=== PATIENT | male | born 1985 | race Two or more races ===

== ENCOUNTER 2017-02-01 01:58 | Emergency (ER) | payer MEDICARE, MEDICAID ==
[~2017-02-01] VITALS: Ht 175.3 cm; Wt 129.3 kg
[~2017-02-01 01:58] MED LIST: CALC667C PO; MULTTAB99 GT; NIFE60TA59 PO; SEVE800T PO
[2017-02-01 03:02] LABS: Basophils # (auto) 0 uL; Basophils % (auto) 0.3 % (0.0-2.0); Eosinophils # (auto) 0.1 uL; Eosinophils % (auto) 0.7 % (0.0-7.0); Hematocrit 45.9 % (41.0-53.0); Hemoglobin 15.1 g/dL (13.5-17.5); Lymphocytes # (auto) 1.8 uL; Lymphocytes % (auto) 16.4 % (10.0-50.0); Mean Corpuscular Hemoglobin 27.8 pg (28.0-32.0); Mean Corpuscular Hgb Conc. 32.8 g/dL (32.0-36.0); Mean Corpuscular Volume 84.8 fL (80.0-100.0); Mean Platelet Volume 7.5 fL (7.4-10.4); Monocytes # (auto) 0.9 uL; Monocytes % (auto) 8.3 % (0.0-12.0); Neutrophils # (auto) 8.3 uL; Neutrophils % (auto) 74.3 % (37.0-80.0); Platelet Count (auto) 264 10^3/uL (140-450); Red Cell Distribution Width 13.7 % (11.6-16.0); White Blood Cell 11.1 10^3/uL (4.4-10.8)
[2017-02-01 03:06] LABS: Urine Bilirubin Negative (Negative); Urine Blood Negative /uL (Negative); Urine Color Yellow (Yellow); Urine Glucose Normal (Normal); Urine Ketone Negative (Negative); Urine Nitrite Negative (Negative); Urine RBC <1 /hpf (0 - 3); Urine Urobilinogen Normal (Negative)
[2017-02-01 03:31] LABS: Albumin 3.7 g/dL (3.4-5.0); BUN/Creatinine Ratio 12.3; Bilirubin, Total 0.8 mg/dL (0.2-1.0); Calcium 8.3 mg/dL (8.5-10.1); Potassium 3.5 mmol/L (3.5-5.1); Total Protein 7.9 g/dL (6.4-8.2)
[2017-02-01] MEDS ORDERED: MORPHINE SULFATE 4 MG/ML SYRG IV ONE (07:00)
[2017-02-01] MEDS ORDERED: ONDANSETRON HCL 4 MG/2 ML VIAL IV ONE (07:00)
[2017-02-01 07:31] VITALS: BP 142/75
== END 2017-02-01 08:55 | disposition home or self-care (01) ==
LOC: ER 01:58
DX: R10.31 Right lower quadrant pain (principal); R10.11 Right upper quadrant pain; I12.0 Hypertensive chronic kidney disease with stage 5 chronic kidney disease or end stage renal disease; N18.6 End stage renal disease; R55 Syncope and collapse; E66.9 Obesity, unspecified; Z68.41 Body mass index [BMI] 40.0-44.9, adult; Z94.0 Kidney transplant status; Z99.2 Dependence on renal dialysis
CPT/HCPCS: 36415; 74176; 80053; 81001; 82150; 83690; 85025; 94761; 96374; 96375; 99285; J2270; J2405